=== PATIENT | male | born 1940 | race Caucasian/White ===

== ENCOUNTER 2023-01-08 09:25 | Day surgery (SDC) | payer MEDICARE ==
[2023-01-06 14:32] VITALS: BMI 30.4
[~2023-01-08 09:25] MED LIST: ALPRAZolam 0.25 MG TAB PO PRN; ALPRAZolam 0.5 MG TAB PO PRN; ASPIRIN 325 MG TAB PO ONE; NITROGLYCERIN SL TABS 0.4 MG TAB SUBLINGUAL PRN; SODIUM CHLORIDE 0.9% 1,000 ML in EMPTY BAG 1 BAG IV SCH
[2023-01-08 09:52] VITALS: RESP 18; TEMP 97.9
[2023-01-08] MEDS ORDERED: fentaNYL (PF) 50 MCG/ML 2 ML AMP ONE (10:04)
[2023-01-08] MEDS ORDERED: VERAPAMIL 2.5 MG/ML 2 ML AMP ONE (10:04)
[2023-01-08] MEDS ORDERED: HEPARIN SODIUM 1,000 UN/ML (10ML VL) ONE (10:04)
[2023-01-08] MEDS ORDERED: MIDAZOLAM 2 MG/2 ML VIAL IV ONE (10:19)
[2023-01-08] MEDS ORDERED: LIDOCAINE 1% INJ 10MG/ML (5 ML VIAL-PF) SQ ONE ×2 (10:19→10:20)
[2023-01-08] MEDS ORDERED: fentaNYL (PF) 50 MCG/ML 2 ML AMP IV ONE (10:20)
[2023-01-08] MEDS ORDERED: HEPARIN SODIUM 1,000 UN/ML (10ML VL) IV ONE (10:22)
[2023-01-08] MEDS ORDERED: VERAPAMIL SYRINGE (5 MG/10 ML) INTRAARTER ONE (10:22)
[2023-01-08] MEDS ORDERED: IOPAMIDOL-370 125ML BTL INJ ONE (10:32)
--- NOTE | 2023-01-08 12:21 | P.CARDCATH ---
Description of Procedure: PROCEDURES PERFORMED: Left heart catheterization, bilateral coronary angiography INDICATION: Abnormal stress test CONSENT:I have discussed the risks, benefits and alternative therapies for the above-mentioned procedure and for both sedation/analgesia as well as necessary blood product administration, if indicated, as they pertain to this patient. The patient has indicated understanding and acceptance of the risks and procedures discussed. PROCEDURE: After the risks, benefits and alternatives of the above mentioned procedure explained in detail with the patient, informed consent was obtained. Patient was taken to the catheterization lab and prepped and draped in usual fashion. 1% lidocaine was used to anesthetize the right radial artery. A 6- Irish sheath was placed in the right radial artery using modified Seldinger technique. Left coronary angiography was performed with a 5-Irish JL 3.5 catheter and right coronary angiography was performed with a 5-Irish JR5 catheter in various views. A 5-Irish FR5 catheter was inserted into the left ventricle and pressure measurements were obtained. The right radial sheath was removed and a TR band was placed with hemostasis achieved. The patient tolerated the procedure well. Patient was transported back to the post catheterization holding area in stable condition. Conscious Sedation: Patient was monitored under the direct supervision of vision of myself for conscious sedation using Versed and fentanyl for a total duration of 15 minutes HEMODYNAMICS: Aorta: 144/64 LV: 141/5, LVEDP 22 SELECTIVE CORONARY ARTERIOGRAPHY: LEFT MAIN: The left main is a large caliber vessel which bifurcates into the LAD and circumflex. There is no significant stenosis. LEFT ANTERIOR DESCENDING CORONARY ARTERY: LAD is a large caliber vessel which wraps around to the apex. There are mild luminal irregularities. LEFT CIRCUMFLEX CORONARY ARTERY: Left circumflex is a small moderate caliber vessel with mild luminal irregularities. RIGHT CORONARY ARTERY: The right coronary artery is a very large caliber vessel which gives off a PDA and PLV branch and is the dominant vessel. There is a mid RCA 20% stenosis. FINAL IMPRESSION: 1. Relatively normal coronary arteries as described above with mild luminal irregularities and a mid RCA 20% stenosis. 2. Elevated left sided filling pressures PLAN: 1. Aggressive risk factor modification per most recent ACC/AHA guidelines. 2. Follow-up in the office in 1-2 weeks.
[2023-01-08 14:19] VITALS: BP 175/81; PULSE 56
== END 2023-01-08 14:48 | disposition home or self-care (01) ==
LOC: CATHCVL 09:25
PROVIDERS: ATTEND Internal Medicine
DX: I25.10 Atherosclerotic heart disease of native coronary artery without angina pectoris (principal); I10 Essential (primary) hypertension; E78.5 Hyperlipidemia, unspecified; Z79.82 Long term (current) use of aspirin
CPT/HCPCS: 93458; J2250; J2001; J3010; J1644; Q9967

== ENCOUNTER → 2023-12-03 | Outpatient (CLI) | payer MEDICARE ==
[2023-12-03 11:39] LABS: African American GFR (CKD) 73 (>60 ml/min/1.73 sqM); Blood Urea Nitrogen 21 mg/dL (9-20); Non-African American GFR(CKD) 63 (>60 ml/min/1.73 sqM)
--- NOTE | 2023-12-03 13:06 | CT ---
EXAMINATION: CT UROGRAM WITHOUT AND WITHOUT IV CONTRAST DATE OF EXAMINATION: 12/03/2023. COMPARISON: None available. INDICATION: Bladder cancer. PROCEDURE: Axial CT of the abdomen and pelvis was performed without and with sagittal and coronal r eformatted images without contrast enhancement. CT dose lowering techniques were used, to include: au tomated exposure control, adjustment for patient size, and/or use of iterative reconstruction. The ex am is limited because some types of pathology may not be adequately demonstrated due to lack of contr ast enhancement. 100 mL of Isovue-300 was given intravenously. FINDINGS: LOWER CHEST : The visualized lung bases are clear. There are no pleural or pericardial effusions. ABDOMEN: Liver and Biliary system: Normal. Adrenal glands: Normal. Kidneys and ureters: There is mild right-sided hydronephrosis with dilation of the ureter down to th e level of the ureterovesical junction where at the ureterovesical junction could potentially be comp ressed by a markedly enlarged prostate. Left kidney and ureter otherwise appear unremarkable. Spleen: Normal. Pancreas: Cystic structure within the tail the pancreas measures 1.8 cm in diameter. The pancreas ot herwise appears atrophic throughout its parenchyma with no definitive solid mass identified. Gallbladder: There is a calcified gallstone within the gallbladder. Lymph nodes, Peritoneum and mesentery: There is no mesenteric or retroperitoneal lymphadenopathy. Gastrointestinal tract: There are no dilated loops of bowel or free intraperitoneal air. . The appe ndix is normal. Aorta/IVC: There is mild vascular calcification throughout the abdominal aorta without evidence of aneurysmal dilation or dissection.. IVC normal. Abdominal wall: Normal. PELVIS: Fluid: There is no free fluid in the pelvis. Lymph Nodes: There is no pelvic or inguinal lymphadenopathy.. Urinary bladder: The prostate is markedly enlarged which may be potentially compressing the right ur eterovesical junction causing the right-sided hydronephrosis. Additional bladder mass is not clearly identified.. BONES: There are scattered degenerative disc and facet changes throughout the spine. There are no ac ander osseous abnormalities.. ADDITIONAL SIGNIFICANT FINDINGS: None. IMPRESSION: 1. Mild right-sided hydronephrosis and dilation of the ureter down to the level of the ureterovesical junction. The prostate does appear to be markedly enlarged and could be compressing the right ureter ovesical junction and the cause of hydronephrosis. Initial definitive mass is not clearly identified. Urology consult and cystoscopy would be recommended for further evaluation. PICC line 2. Marked prostamegaly. 3. Cystic structure within the tail of the pancreas is indeterminate based on this examination. This is favored to be benign, however an MRI is recommended for further evaluation on a nonemergent basis. If there are additional prior studies available for comparison this would BE recommended as there is no priors available at this time on our system. 4. Cholelithiasis.
== END | disposition home or self-care (01) ==
LOC: RADCTMAIN 10:55
PROVIDERS: ATTEND Urology
DX: C67.9 Malignant neoplasm of bladder, unspecified (principal); N13.30 Unspecified hydronephrosis; K80.20 Calculus of gallbladder without cholecystitis without obstruction
CPT/HCPCS: 82565; 84520; 74178; 36415; 74400; Q9967